=== PATIENT | female | born 1980 | race African-American/Black ===

== ENCOUNTER 2018-03-21 22:38 | Emergency (ER) | payer MEDICAID, OTHER ==
[~2018-03-21] VITALS: Ht 160 cm; Wt 65.9 kg
[2018-03-22 03:58] LABS: *AMPHETAMINES SCREEN URINE NEGATIVE (NEGATIVE); *BARBITURATES SCREEN URINE NEGATIVE (NEGATIVE); *BENZODIAZEPINES SCREEN URINE NEGATIVE (NEGATIVE); *COCAINE SCREEN URINE NEGATIVE (NEGATIVE); METHADONE URINE SCREEN NEGATIVE (NEGATIVE)
[2018-03-22 03:59] LABS: OPIATES URINE SCREEN NEGATIVE (NEGATIVE); PHENCYCLIDINE URINE SCREEN NEGATIVE (NEGATIVE)
[2018-03-22 04:00] LABS: CANNABINOID URINE SCREEN PRESUMTIVE POSITIVE (NEGATIVE)
[2018-03-22] MEDS ORDERED: SODIUM CHLORIDE 0.9% 1,000 ML IV ONE (04:45)
[2018-03-22 05:43] VITALS: BP 116/80
== END 2018-03-22 05:50 | disposition home or self-care (01) ==
LOC: ER 23:05
DX: S39.012A Strain of muscle, fascia and tendon of lower back, initial encounter (principal); F41.9 Anxiety disorder, unspecified; V49.88XA Car occupant (driver) (passenger) injured in other specified transport accidents, initial encounter; Y93.89 Activity, other specified; Y99.8 Other external cause status; Y92.410 Unspecified street and highway as the place of occurrence of the external cause
CPT/HCPCS: 36415; 72131; 80305; 96360; 99285; G0482; J7030; Z7610

== ENCOUNTER 2020-02-13 15:06 | Emergency (ER) | payer MEDICAID ==
[~2020-02-13] VITALS: Ht 160 cm; Wt 63.5 kg
[2020-02-13] MEDS ORDERED: ALEVE (15:21)
[2020-02-13] MEDS ORDERED: KETOROLAC 60MG/2ML VIAL IM ONE (16:00)
[2020-02-13 16:15] VITALS: BP 123/86
== END 2020-02-13 16:17 | disposition home or self-care (01) ==
LOC: ER 15:06
DX: M54.6 Pain in thoracic spine (principal); R51 Headache; V49.40XA Driver injured in collision with unspecified motor vehicles in traffic accident, initial encounter; Y93.89 Activity, other specified; Y92.410 Unspecified street and highway as the place of occurrence of the external cause; F41.9 Anxiety disorder, unspecified
CPT/HCPCS: 81025; 96372; 99283; J1885

== ENCOUNTER 2020-08-04 10:52 | Emergency (ER) | payer MEDICAID, OTHER ==
[~2020-08-04] VITALS: Ht 160 cm; Wt 68.0 kg
[~2020-08-04 10:52] MED LIST: ALEVE
[2020-08-04] MEDS ORDERED: SODIUM CHLORIDE 0.9% 1,000 ML IV ONE (11:13)
[2020-08-04] MEDS ORDERED: FAMOTIDINE 20MG/2ML VIAL IV STA (11:13)
[2020-08-04 11:47] LABS: BASOPHILS % 0.8 % (0.0-2.0); EOSINOPHILS % 0.7 % (0.0-5.0); HEMATOCRIT. 42.3 % (36.0-48.0); HEMOGLOBIN. 14.6 g/dL (12.0-16.0); LYMPHOCYTES % 14.9 % (20.0-50.0); MEAN CORPUSCULAR HEMOGLOBIN 34.3 pg (28.0-32.0); MEAN CORPUSCULAR VOLUME 99.8 fL (81.0-99.0); MEAN PLATELET VOLUME 11.1 fl (7.4-10.4); MONOCYTES % 9.6 % (2.0-8.0); PLATELET 65 x1000/uL (130-400); RED BLOOD CELL COUNT 4.24 mill/uL (4.2-5.4); RED CELL DISTRIBUTION WIDTH 13.1 % (11.6-14.6)
[2020-08-04 11:54] LABS: CHLORIDE 102 mEq/L (98-107)
[2020-08-04 11:56] LABS: PROTHROMBIN TIME 10.1 sec (9.6-11.0)
[2020-08-04 12:00] LABS: ETHANOL BLOOD < 10 mg/dL
[2020-08-04 12:15] LABS: HCG SCREEN NEGATIVE
[2020-08-04] MEDS ORDERED: ONDANSETRON HCL 4MG/2ML INJ IV ONE (12:30)
[2020-08-04 13:22] LABS: CLARITY URINE CLOUDY (CLEAR); COLOR URINE DARK YELLOW (YELLOW); KETONES URINE TRACE (NEGATIVE); LEUKOCYTE ESTERASE URINE NEGATIVE (NEGATIVE); NITRITE URINE NEGATIVE (NEGATIVE); OCCULT BLOOD URINE NEGATIVE (NEGATIVE); PROTEIN URINE TRACE (NEGATIVE); SPECIFIC GRAVITY URINE 1.029 (1.005-1.030); UROBILINOGEN URINE 0.2 E.U./dL (0.2-1.0)
[2020-08-04 13:34] LABS: *AMPHETAMINES SCREEN URINE NEGATIVE (NEGATIVE); *BARBITURATES SCREEN URINE NEGATIVE (NEGATIVE)
[2020-08-04 13:35] LABS: *BENZODIAZEPINES SCREEN URINE NEGATIVE (NEGATIVE); *COCAINE SCREEN URINE NEGATIVE (NEGATIVE); METHADONE URINE SCREEN NEGATIVE (NEGATIVE); OPIATES URINE SCREEN NEGATIVE (NEGATIVE); PHENCYCLIDINE URINE SCREEN NEGATIVE (NEGATIVE)
[2020-08-04 13:39] LABS: CANNABINOID URINE SCREEN PRESUMTIVE POSITIVE (NEGATIVE)
[2020-08-04 17:04] VITALS: BP 133/95
== END 2020-08-04 18:40 | disposition left against medical advice (07) ==
LOC: ER 11:05 → EDBEDREQ 12:41 → ER 18:40 → CANBEDREQ 21:26
DX: K85.90 Acute pancreatitis without necrosis or infection, unspecified (principal); F41.9 Anxiety disorder, unspecified
CPT/HCPCS: 36415; 76705; 80053; 80061; 80305; 80320; 81003; 81025; 82150; 83690; 84703; 85025; 85610; 93005; 96374; 96375; 99285; J2405; J3490; J7030; G0480

== ENCOUNTER 2022-08-10 05:49 | Emergency (ER) | payer OTHER ==
[~2022-08-10] VITALS: Ht 162.6 cm; Wt 68.0 kg
[2022-08-10] MEDS ORDERED: FAMOTIDINE 20MG/2ML VIAL IV ONE (07:00)
[2022-08-10] MEDS ORDERED: SODIUM CHLORIDE 0.9% 1,000 ML IV ONE (07:00)
[2022-08-10] MEDS ORDERED: METOCLOPRAMIDE HCL 10MG/2ML VIAL IV ONE (07:00)
[2022-08-10 07:28] LABS: BASOPHILS % 0.6 % (0.0-2.0); EOSINOPHILS % 0.2 % (0.0-5.0); HEMATOCRIT. 45.8 % (36.0-48.0); HEMOGLOBIN. 16.1 g/dL (12.0-16.0); LYMPHOCYTES % 9.4 % (20.0-50.0); MEAN CORPUSCULAR VOLUME 96.8 fL (81.0-99.0); MEAN PLATELET VOLUME 11.2 fl (7.4-10.4); NEUTROPHILS % 80.8 % (40.0-76.0); PLATELET 87 x1000/uL (130-400); RED BLOOD CELL COUNT 4.74 mill/uL (4.2-5.4); RED CELL DISTRIBUTION WIDTH 13.6 % (11.6-14.6)
[2022-08-10 07:33] LABS: CHLORIDE 95 mEq/L (98-107)
[2022-08-10 08:05] LABS: CLARITY URINE CLOUDY (CLEAR); COLOR URINE DARK YELLOW (YELLOW); KETONES URINE 1+ (NEGATIVE); LEUKOCYTE ESTERASE URINE TRACE (NEGATIVE); NITRITE URINE NEGATIVE (NEGATIVE); OCCULT BLOOD URINE NEGATIVE (NEGATIVE); PH URINE 7.5 (4.5-8.0); PROTEIN URINE 2+ (NEGATIVE)
[2022-08-10] MEDS ORDERED: SODIUM CHLORIDE 0.9% 250 ML IV SCH (08:15)
[2022-08-10] MEDS ORDERED: KETOROLAC 30MG/ML VIAL IV SCH (08:30)
[2022-08-10 08:41] LABS: PROTHROMBIN TIME 10.9 sec (9.6-11.0)
[2022-08-10 10:00] VITALS: BP 145/98
== END 2022-08-10 11:12 | disposition admitted as inpatient to this hospital (09) ==
LOC: ER 05:49 → CANBEDREQ 22:11
DX: K85.90 Acute pancreatitis without necrosis or infection, unspecified (principal); Z20.822 Contact with and (suspected) exposure to COVID-19
CPT/HCPCS: 36415; 76705; 80053; 81003; 83605; 83690; 84484; 85025; 85610; 86850; 86900; 86901; 87426; 96361; 96374; 96375; 99284; C9803; J1885; J2765; J3490; J7030

== ENCOUNTER 2025-07-27 08:15 | Emergency (ER) | payer MEDICAID ==
[~2025-07-27] VITALS: Ht 162.6 cm; Wt 71.0 kg
[~2025-07-27 08:15] MED LIST changes: -ALEVE; +FOLI-43 MT; +MULT-1146 MT; +THIA50TA12 MT
[2025-07-27 08:18] VITALS: O2SAT 98
[2025-07-27 08:21] VITALS: BP 134/77; PULSE 102; RESP 18; TEMP 36.9; O2SAT 100
[2025-07-27] MEDS ORDERED: MUPI1OIN4 TP (09:09)
== END 2025-07-27 09:33 | disposition home or self-care (01) ==
LOC: ER 08:15
DX: L01.00 Impetigo, unspecified (principal); I10 Essential (primary) hypertension; Z79.899 Other long term (current) drug therapy
CPT/HCPCS: 99283